=== PATIENT | female | born 1950 | race Caucasian/White ===

== ENCOUNTER 2019-02-06 18:32 | Inpatient (IN) | payer OTHER ==
[~2019-02-06] VITALS: Ht 154.9 cm; Wt 68.2 kg
[2019-02-06] MEDS ORDERED: SOD CHLORIDE 0.9% 1,000 ML IV STA (18:53)
--- NOTE | 2019-02-06 18:59 | ERD ---
ER Documentation Chief Complaint Chief Complaint HPI This is a 68-year-old female with a past medical history of liver cirrhosis on s pironolactone lactulose pantoprazole and folic acid. On 2018 the patient had a spontaneous pneumothorax. She has a heavy tobacco use with COPD. She was taken to [facility] where a chest tube was placed. The patient was discharged to [facility] facility. She had become altered and taken to [facility] in early January. At that time she had a chest tube reinserted and removed 3 times during a 2-week course. She had subsequently been discharged 5 days ago with a Heimlich valve. She had been taken to her [facility] and today accidentally had turned and pulled out her Heimlich valve at 4 PM, 3 hours prior to arrival. The patient was brought to the e mergency department by EMS. She denies any difficulty breathing at this time. There is minimal amount of bleeding over the Heimlich valve site. Nursing staff and placed a pressure dressing which improved her symptoms. ROS All systems reviewed and are negative except as per history of present illness. Allergies Allergies: Coded Allergies: No Known Allergy (Unverified , 02/06/19) Physical Exam Vitals Vital Signs Date Temp Pulse Resp B/P (MAP) Pulse Ox O2 O2 Flow FiO2 Time Delivery Rate 02/06/19 98.4 83 16 138/83 100 Room Air 21:35 (101) 02/06/19 98.4 79 15 142/102 100 Room Air 20:26 (115) 02/06/19 100 100 20:13 02/06/19 98.4 80 19 127/78 97 Room Air 19:46 (94) 02/06/19 Nasal 3 19:03 Cannula 02/06/19 98.4 117 19 159/100 97 19:01 (119) Physical Exam Constitutional:Well-developed. Well-nourished. HEENT:Normocephalic. Atraumatic.Pupils were equal round reactive to light. Moist mucous membranes.No tonsillar exudates. Neck: No nuchal rigidity. No lymphadenopathy. No posterior cervical spine tenderness or step-offs. Respiratory: Not using accessory muscles of respiration.decreased breath sounds throughout the right hemothorax. No rhonchi. No rales. No wheezing. Cardiovascular: Regular rate regular rhythm.No murmurs. No rubs were appreciated .S1, S2 normal. Distal pulses are palpable 2+ bilaterally. Diffuse crepitus over the right chest wall no flail chest. GI: Abdomen was soft. Nontender. Non Distended. No pulsatile abdominal masses or bruits. No rebound. No guarding. Bowel sounds were present and normal. Muscle skeletal: Full range of motion of both the upper and lower extremities bilaterally.Normal muscle tone.No assymetrical calf tenderness or swelling. Skin: No petechia, no purpura. No lesions on the palms or the soles of the feet. No maculopapular rash. NEURO: Patient was alert, awake, orientated x3.No facial droop. Gait not observed as patient was too weak to ambulate .Speech had regular rate and rhythm. No focal neurological deficits. Result Diagram: 02/06/19192802/06/191928 Results 24 hrs Laboratory Tests Test 02/06/19 19:29 02/06/19 21:40 White Blood Count 8.2 10^3/ul Red Blood Count 4.64 10^6/ul Hemoglobin 14.1 g/dl Hematocrit 42.6 % Mean Corpuscular Volume 91.8 fl Mean Corpuscular Hemoglobin 30.4 pg Mean Corpuscular Hemoglobin Concent 33.1 g/dl Red Cell Distribution Width 16.0 % Platelet Count 198 10^3/UL Mean Platelet Volume 10.2 fl Immature Granulocytes % 1.200 % Neutrophils % 65.8 % Lymphocytes % 16.1 % Monocytes % 11.5 % Eosinophils % 4.7 % Basophils % 0.7 % Nucleated Red Blood Cells % 0.0 /100WBC Immature Granulocytes # 0.100 10^3/ul Neutrophils # 5.4 10^3/ul Lymphocytes # 1.3 10^3/ul Monocytes # 1.0 10^3/ul Eosinophils # 0.4 10^3/ul Basophils # 0.1 10^3/ul Nucleated Red Blood Cells # 0.0 10^3/ul Prothrombin Time 17.3 Sec Prothrombin Time Ratio 1.4 INR International Normalized Ratio 1.40 Activated Partial Thromboplast Time 34.5 Sec Sodium Level 136 mmol/L Potassium Level 3.8 mmol/L Chloride Level 100 mmol/L Carbon Dioxide Level 26 mmol/L Anion Gap 10 Blood Urea Nitrogen 8 mg/dl Creatinine 0.76 mg/dl Est Glomerular Filtrat Rate mL/min > 60 mL/min Glucose Level 210 mg/dl Calcium Level 9.2 mg/dl Total Bilirubin 1.6 mg/dl Direct Bilirubin 0.00 mg/dl Indirect Bilirubin 1.6 mg/dl Aspartate Amino Transf (AST/SGOT) 51 IU/L Alanine Aminotransferase (ALT/SGPT) 29 IU/L Alkaline Phosphatase 106 IU/L Creatine Kinase < 20 IU/L Creatine Kinase Index Creatinine Kinase MB (Mass) 0.29 ng/ml Troponin I < 0.012 ng/ml B-Type Natriuretic Peptide 64 PG/ML Total Protein 7.3 g/dl Albumin 3.1 g/dl Globulin 4.20 g/dl Albumin/Globulin Ratio 0.73 Lipase 244 U/L Ammonia 34 umol/l Current Medications Medications Dose Sig/Nicole Start Time Status Last (Trade) Ordered Route PRN Stop Time Admin Dose Reason Admin Sodium 1,000 ml @ Q1H STAT 02/06/19 DC 02/06/19 Chloride 1,000 mls/hr IV 18:53 02/06/19 18:53 19:52 1 mg ONCE STAT 02/06/19 DC 02/06/19 Hydromorphone IV 19:05 02/06/19 19:05 HCl 19:06 (Dilaudid) Propofol 100 mg ONCE STAT 02/06/19 DC (Diprivan) IV 19:05 02/06/19 19:06 Ondansetron 4 mg ONCE STAT 02/06/19 DC 02/06/19 HCl (Zofran IV 19:05 02/06/19 19:05 Inj) 19:06 Propofol 20 ml @ STK-MED 02/06/19 DC ONCE .ROUTE 19:06 02/06/19 19:07 Vancomycin 250 ml @ ONCE ONCE 02/06/19 02/06/19 HCl 125 mls/hr IVPB 20:30 02/06/19 21:56 22:29 Piperacillin 100 ml @ ONCE STAT 02/06/19 DC 02/06/19 Sod/ 200 mls/hr IVPB 20:15 02/06/19 20:15 Tazobactam 20:44 Sod Ondansetron 4 mg ER BRIDGE 02/06/19 HCl (Zofran PRN IV 21:30 02/07/19 Inj) NAUSEA/VOMITI 21:29 NG 650 mg ER BRIDGE 02/06/19 Acetaminophen PRN PO 21:30 02/07/19 (Tylenol .MILD PAIN 21:29 Tab) 1-3 OR TEMP Procedures/MDM This is a 68-year-old female that presented to the emergency department with significant right chest wall crepitus status post accident removal of Heimlich valve. The patient was immediately placed on a supply chain tech continuous pulse oximetry and IV access had been established by nursing staff. The patient was placed on low flow supplemental oxygen however the patient was not hypoxic. 12 Lead EKG tracing ordered and reviewed by myself showed: Normal sinus rhythm of 80 bpm and no arrhythmia. IN interval normal. QRS duration normal. No ST segment elevation No ST segment depression. No changes consistent with acute ischemia. Due to the patient's physical exam findings with diffuse crepitus of her right chest wall I was concerned for a large pneumothorax. The patient however had a CT scan of her chest that showed that the subcutaneous emphysema was present on the anterior chest wall more prominent on the right which was consistent with the physical exam findings. However the pneumothorax was only 5%. CT scan read by the radiologist indicate the followin. Subcutaneous emphysema involving the anterior chest wall, more notably on the right side. This is likely related to the patient's previous indwelling chest tube. 2. There is a small, approximate 5% volume, residual right pneumothorax demonstrated. 3. Mild centrilobular emphysema. No consolidative pulmonary infiltrates. Mild atelectasis in the lower lobes. The patient was given nebulizer treatments in the emergency department. She was also placed on high flow supplemental oxygen with a nonrebreather. The patient at this time did not require a chest tube. She will be monitored closely and admitted to the hospital for observation. She will have a repeat CT scan performed in the morning. I did administer IV antibiotics to prevent secondary bacterial infection after blood cultures were obtained. She was given va ncomycin and Zosyn. She will be admitted under the care of Dr. Fernandes. The patient also has a history of liver cirrhosis. Ammonia level has been ordered. Given that the patient had an ostomy site from the Heimlich valve, the overlying the area of skin was cleaned with Betadine. A three-way dressing was applied as this could be considered an open pneumothorax. Critical Care: Time: 90 minutes Treatments/Evaluations: Close monitoring and treatment of unstable vital signs, cardiorespiratory, and neurologic status, while maintaining tight balance of fluid, respiratory, and cardiac interventions. Time does not include performing any of the above billable procedures. Departure Diagnosis: Primary Impression: Pneumothorax Pneumothorax type: unspecified pneumothorax Qualified Codes: J93.9 - Pneumothorax, unspecified Condition: Serious SANTANA WEBB MD Feb 06, 2019 18:59
[2019-02-06] MEDS ORDERED: HYDROmorphONE 1 MG/ML SYG IV STA (19:05)
[2019-02-06] MEDS ORDERED: PROPOFOL 200 MG INJ IV STA (19:05)
[2019-02-06] MEDS ORDERED: ONDANSETRON 4 MG INJ IV STA (19:05)
[2019-02-06] MEDS ORDERED: PROPOFOL 0 ML ONE (19:06)
[2019-02-06] MEDS ORDERED: PIPER-TAZO 3.375 GM IV (PMX) 100 ML IVPB STA (20:15)
[2019-02-06] MEDS ORDERED: VANCOMYCIN 1 GM (PMX) 250 ML IVPB ONE (20:30)
[2019-02-06] MEDS ORDERED: ONDANSETRON 4 MG INJ IV PRN (21:30)
[2019-02-06] MEDS ORDERED: ACETAMINOPHEN 325 MG TAB PO PRN (21:30)
[2019-02-06 22:25] VITALS: PULSE 80
[2019-02-06 23:01] VITALS: BP 134/73; PULSE 77; RESP 20
[2019-02-07] VITALS (9 sets, daily range): BP systolic 100–154; BP diastolic 50–67; PULSE 57–80; RESP 18–19; Ht 154.9 cm; Wt 68.2 kg
[2019-02-07] MEDS ORDERED: ALBUTEROL HFA 8 GM INHALER INH PRN (01:00)
[2019-02-07] MEDS ORDERED: ONDANSETRON 4 MG TAB PO PRN (01:00)
[2019-02-07] MEDS ORDERED: RIFAXIMIN 550 MG TAB PO ONE (01:00)
[2019-02-07] MEDS ORDERED: traMADol 50 MG TAB PO PRN (01:00)
[2019-02-07] MEDS: DIPHENHYDRAMINE 25 MG CAP PO PRN ×2 (01:56→22:08)
[2019-02-07] MEDS: LACTULOSE 30ML CUP PO SCH ×3 (05:24→17:44)
[2019-02-07] MEDS: PANTOPRAZOLE (EC) 40 MG TAB PO SCH (05:24)
[2019-02-07] MEDS: PIPER-TAZO 3.375 GM IV (PMX) 100 ML IVPB SCH ×2 (05:25→13:01)
[2019-02-07] MEDS ORDERED: FAMOTIDINE 20 MG TAB PO SCH (09:00)
[2019-02-07] MEDS: THIAMINE 100 MG TAB PO SCH (09:17)
[2019-02-07] MEDS: CYANOCOBALAMIN 500 MCG TAB PO SCH (09:17)
[2019-02-07] MEDS: FOLIC ACID 1 MG TAB PO SCH (09:17)
[2019-02-07] MEDS: FERROUS SULFATE (EC) 325 MG TAB PO SCH (09:17)
[2019-02-07] MEDS: SPIRONOLACTONE 50 MG TAB PO SCH (09:17)
[2019-02-07] MEDS: NICOTINE (21 MG/24 HR) PATCH TRANSDERM SCH (09:17)
[2019-02-07] MEDS: MULTIVITAMINS THERAPEUTIC TAB PO SCH (09:18)
[2019-02-07] MEDS: FUROSEMIDE 40 MG TAB PO SCH (09:18)
--- NOTE | 2019-02-07 13:30 | HP ---
Date/Time of Note Date/Time of Note DATE: 02/07/19 TIME: 12:53 Assessment/Plan VTE Prophylaxis Risk score (from Ns)>0 risk: 5 SCD applied (from Ns): Yes Pharmacological prophylaxis: NA/contraindicated Pharm contraindication: blood coag disorder Lines/Catheters IV C[facility]ter Type [facility]from [facility] Saline Lock Urinary Cath still in place: No Assessment/Plan Assessment/Plan 68-year-old female with: 1. Known recurrent right pneumothorax, status post Heimlich valve week ago which unfortunately was accidentally removed or fell off at SNF, CAT scans over the past 24 hours since it fell off is showing a stable small pneumothorax at approximately 5%. However patient is well known to us and has had recurrence of her pneumothorax within 48 hours, will order chest x-ray PA and lateral for the morning and if still having a small pneumothorax and O2 requirement lower, she may be discharged back to longterm facility with unfortunately the high likelihood for readmission because of recurrence of right pneumothorax. She does have bullous emphysema and some rib fractures on the right which would increase her risk for recurrence of the pneumothorax. No need for antibiotics. 2. Alcoholic cirrhosis with known sequelae including portal hypertension, chronic mild coagulopathy and hepatic encephalopathy Mental status is stable, continue lactulose and rifaximin She is also on spironolactone and Lasix. Monitor mental status. 3. COPD/bullous emphysema: we will put the patient on Brio Ellipta along with prn nebulizer treatments. 4. Tobacco use: Agree with nicotine patch. 5. History of EtOH use, on appropriate folic acid/multivitamin/thiamine 6. Chronic anemia, continue iron supplementation. h/h stable Prophylaxis: SCDs for DVT prophylaxis, Protonix for GI prophylaxis Disposition: Patient on telemetry, will order 2 view chest x-ray for a.m. with possible discharge back to longterm facility in the next 24 hours if O2 requirement improved and small pneumothorax stable. Patient is DNR Result Diagram: 02/07/1960602/07/19606 Results 24hrs Laboratory Tests Test 02/06/19 19:29 02/06/19 21:40 02/07/19 06:07 White Blood Count 8.2 9.7 Red Blood Count 4.64 4.42 Hemoglobin 14.1 13.3 Hematocrit 42.6 41.5 Mean Corpuscular Volume 91.8 93.9 Mean Corpuscular Hemoglobin 30.4 30.1 Mean Corpuscular Hemoglobin Concent 33.1 32.0 Red Cell Distribution Width 16.0 H 16.2 H Platelet Count 198 194 Mean Platelet Volume 10.2 10.1 Immature Granulocytes % 1.200 H 1.000 H Neutrophils % 65.8 69.4 Lymphocytes % 16.1 13.8 L Monocytes % 11.5 H 9.9 Eosinophils % 4.7 5.4 Basophils % 0.7 0.5 Nucleated Red Blood Cells % 0.0 0.0 Immature Granulocytes # 0.100 H 0.100 H Neutrophils # 5.4 6.7 Lymphocytes # 1.3 1.3 Monocytes # 1.0 H 1.0 H Eosinophils # 0.4 0.5 Basophils # 0.1 0.1 Nucleated Red Blood Cells # 0.0 0.0 Prothrombin Time 17.3 H 17.1 H Prothrombin Time Ratio 1.4 1.3 INR International Normalized Ratio 1.40 1.38 Activated Partial Thromboplast Time 34.5 Sodium Level 136 142 Potassium Level 3.8 4.1 Chloride Level 100 107 Carbon Dioxide Level 26 25 Anion Gap 10 10 Blood Urea Nitrogen 8 9 Creatinine 0.76 1.00 Est Glomerular Filtrat Rate mL/min > 60 55 L Glucose Level 210 92 # Calcium Level 9.2 8.6 Total Bilirubin 1.6 H 1.3 Direct Bilirubin 0.00 0.00 Indirect Bilirubin 1.6 H 1.3 H Aspartate Amino Transf (AST/SGOT) 51 H 49 H Alanine Aminotransferase (ALT/SGPT) 29 32 Alkaline Phosphatase 106 89 Creatine Kinase < 20 L Creatine Kinase Index Creatinine Kinase MB (Mass) 0.29 Troponin I < 0.012 B-Type Natriuretic Peptide 64 Total Protein 7.3 6.4 Albumin 3.1 L 2.6 L Globulin 4.20 H Albumin/Globulin Ratio 0.73 Lipase 244 Ammonia 34 H Hemoglobin A1c 5.5 Triglycerides Level 71 Cholesterol Level 98 L LDL Cholesterol, Calculated 58 HDL Cholesterol 26 L Cholesterol/HDL Ratio 3.7 HPI/ROS Admit Date/Time Admit Date/Time Feb 06, 2019 at 21:05 Hx of Present Illness Chief complaint: Heimlich valve accidentally removed History of presenting illness: 68 year-old female, well-known to me, was hospitalized at [facility] in November 2018 with right pneumothorax but ended up needing placement of a Heimlich valve, sent to a longterm facility where she developed hepatic encephalopathy due to her known alcoholic cirrhosis and also significant subcutaneous emphysema while having a Heimlich valve that may have been dislodged, she was admitted at [facility] in January 2019 to the intensive care unit, chest tube was placed on admission for her right pneumothorax, the chest tube was eventually removed with a recurrence of the pneumothorax within 24-48 hours, therefore Heimlich valve had to be replaced prior to discharge from [facility] approximately a week ago. Now the patient is readmitted at [facility] from the facility she was sent to after apparently accidental removal of the Heimlich valve, apparently fell off. Patient denies any shortness of breath however upon arrival in the emergency department, CAT scan of the chest was done last night and she was found to have a small pneumothorax 5%. She was placed on nonrebreather until and now on 6 L nasal cannula, repeat CAT scan 12 hours later approximately showing an unchanged pneumothorax. Likely will need repeat imaging tomorrow and if still patient only has a small pneumothorax she may not need replacement of a Heimlich valve. However she is a high risk because she has significant bullous emphysema and a high risk for recurrence of this right pneumothorax as she has done in the past many times and so for her to have a Heimlich valve placed x2 over the past 2 months. Her mental status is at baseline however, she is on her appropriate medications for her hepatic encephalopathy. Of note, while at [facility], she has been considered for possible pleurodesis, patient by the end of her stay was refusing any invasive surgery, also she was considered a high risk due to her recurrence of hepatic ence phalopathy and significant liver disease. After discussion with the family and the patient, she opted for reinsertion of the Heimlich valve and also was a DNR and may have been discharged on hospice while at longterm facility or was supposed to meet up with hospice while at SNF ROS Eyes: no complaints ENT: no complaints Respiratory: no complaints Cardiovascular: no complaints Gastrointestinal: no complaints Genitourinary: no complaints Musculoskeletal: no complaints Skin: other (Still with some subcutaneous emphysema) Neurologic: no complaints Endocrine: no complaints PMH/Family/Social Past Medical History Recurrent right pneumothorax, status post Heimlich valve a week ago, prior to that did require chest tube for a couple of weeks and prior to that had a Heimlich valve. COPD/bullous emphysema Alcoholic cirrhosis Hepatic encephalopathy, chronic Portal hypertension, chronic Chronic mild coagulopathy 2ry to cirrhosis Tobacco use Medications Current Medications Ondansetron HCl (Zofran Inj) 4 mg ER BRIDGE PRN IV NAUSEA/VOMITING; Start 02/06/19 at 21:30; Stop 02/07/19 at 21:29 Acetaminophen (Tylenol Tab) 650 mg ER BRIDGE PRN PO .MILD PAIN 1-3 OR TEMP; Start 02/06/19 at 21:30; Stop 02/07/19 at 21:29 Lactulose (Enulose) 20 gm Q6 PO Last administered on 02/07/19 05:24; Admin Dose 20 GM; Start 02/07/19 at 06:00 Piperacillin Sod/ Tazobactam Sod 100 ml @ 200 mls/hr Q6 IVPB Last administered on 02/07/19 05:25; Admin Dose 200 MLS/HR; Start 02/07/19 at 06:00 Diphenhydramine HCl (Benadryl) 25 mg HS PRN PO INSOMNIA Last administered on 02/07/19 01:56; Admin Dose 25 MG; Start 02/07/19 at 01:00 Pantoprazole (Protonix Tab) 40 mg DAILY@06 PO Last administered on 02/07/19 05 :24; Admin Dose 40 MG; Start 02/07/19 at 06:00 Folic Acid (Folic Acid) 1 mg DAILY PO Last administered on 02/07/19 09:17; Admin Dose 1 MG; Start 02/07/19 at 09:00 Spironolactone (Aldactone) 100 mg DAILY PO Last administered on 02/07/19 09:17; Admin Dose 100 MG; Start 02/07/19 at 09:00 Multivitamins Therapeutic (Theragran) 1 tab DAILY PO Last administered on 02/07/19 09:18; Admin Dose 1 TAB; Start 02/07/19 at 09:00 Furosemide (Lasix) 40 mg DAILY PO Last administered on 02/07/19 09:18; Admin Dose 40 MG; Start 02/07/19 at 09:00 Cyanocobalamin (Vitamin B12) 1,000 mcg DAILY PO Last administered on 02/07/19 09:17; Admin Dose 1,000 MCG; Start 02/07/19 at 09:00 Nicotine (Nicoderm 21 Mg/ 24hr) 1 patch DAILY TRANSDERM Last administered on 02/07/19at 09:17; Admin Dose 1 PATCH; Start 02/07/19 at 09:00 Ferrous Sulfate (Ferrous Sulfate (Ec)) 325 mg DAILY PO Last administered on 02/07/19at 09:17; Admin Dose 325 MG; Start 02/07/19 at 09:00 Thiamine HCl (Vitamin B1) 100 mg DAILY PO Last administered on 02/07/19at 09:17; Admin Dose 100 MG; Start 02/07/19 at 09:00 Famotidine (Pepcid) 20 mg BID PO Last administered on 02/07/19 09:18; Admin Dose 20 MG; Start 02/07/19 at 09:00 Albuterol (Ventolin Hfa) 2 puff Q4H RESP THERAPY PRN INH SHORTNESS OF BREATH; Start 02/07/19 at 01:00 Tramadol HCl (Ultram) 50 mg Q6H PRN PO MODERATE PAIN LEVEL 4-6; Start 02/07/19 at 01:00 Ondansetron HCl (Zofran Tab) 4 mg Q6H PRN PO NAUSEA AND/OR VOMITING; Start 02/07/19 at 01:00 Coded Allergies: No Known Allergy (Unverified , 02/06/19) Past Surgical History Status post Heimlich valve x2 now that subsequently dislodged while at longterm facility Social History Alcohol Use: sober Smoking Status: Former smoker Drug Use: none Exam/Review of Systems Vital Signs Vitals Vital Signs Date Temp Pulse Resp B/P (MAP) Pulse Ox O2 O2 Flow FiO2 Time Delivery Rate 02/07/19 74 12:13 02/07/19 98.3 18 100/50 95 11:19 (67) 02/07/19 6.0 09:56 02/07/19 Non 08:00 Rebreather 02/06/19 100 20:13 Exam Constitutional: alert, oriented, well developed Respiratory: clear to auscultation, normal air movement, other (Some faint scattered wheezes otherwise good air movement.) Cardiovascular: regular rate and rhythm, nl pulses Gastrointestinal: soft, non-tender Musculoskeletal: nl extremities to inspection Extremities: normal pulses, other (No edema, clubbing or cyanosis) Neurological: GAMEPLAY PROGRAMMER II-XII intact, nl mental status, nl speech, nl strength Additional Comments PROCEDURE: CT Chest without contrast. CLINICAL INDICATION: Pneumothorax. TECHNIQUE: Multiple contiguous helical CT images of the chest were obtained without the administration of intravenous contrast. Coronal and sagittal reformatted images were obtained from the source images. DICOM images are available. CTDIvol (mGy): 7.6 mGy; Total Exam DLP (mGy-cm): 264.31 mGy.cm. One or more of the following dose reduction techniques were utilized: - Automated exposure control. - Adjustment of the mA and/or kV according to patient size. - Use of iterative reconstruction technique. COMPARISON: 02/06/2019. FINDINGS: Lower neck: Unremarkable. Cardiovascular: The heart is not enlarged. There is no pericardial effusion. The thoracic aorta is normal in caliber. Thoracic aortic atherosclerotic calcification is observed. Coronary artery calcification is present. The pulmonary arteries are not substantially enlarged. Mediastinum: Unremarkable. Lymph nodes: No mediastinal, hilar or axillary lymphadenopathy. Lungs: A small right pneumothorax is unchanged. Subsegmental atelectasis is seen throughout the right lower lobe. Milder atelectatic changes are seen within the left lower lobe. Diffuse bronchial wall thickening is observed. Paraseptal and centrilobular emphysematous changes are seen bilaterally abdominally within the upper lungs. Small bullae are also present. Upper abdomen: Cirrhotic liver. Splenomegaly. Musculoskeletal: Mild degenerative changes of the thoracic spine are observed. Scattered few nondisplaced right anterior rib fractures are present. Additional comments: Anterior chest wall subcutaneous emphysema, unchanged to slightly decreased. IMPRESSION: Small right pneumothorax, grossly unchanged. Anterior chest wall subcutaneous emphysema, unchanged to slightly decreased. Upper lung predominant bullous emphysema. Bibasilar subsegmental atelectasis, right greater than left. Scattered few nondisplaced right anterior rib fractures. RPTAT: AAQQ .Elena Garcia MD, Date Time Electronically viewed and signed by .Elena Garcia MD, on 02/07/2019 12:33 .T/ CC: SHAMEKA CAMACHO MD, N'DEYE F Feb 07, 2019 13:11
[2019-02-07] MEDS: ALBUTEROL/IPRATROPIUM (NEB) 3 ML AMP HHN SCH (15:27)
[2019-02-07] MEDS: FLUTICASONE/VILANTEROL 200-25 INH DEVICE INH SCH (16:00)
[2019-02-07] MEDS ORDERED: INSU100C SQ (16:08)
[2019-02-07] MEDS ORDERED: NICO-544 TD (16:31)
[2019-02-07] MEDS ORDERED: FURO40TA4 PO (16:31)
[2019-02-07] MEDS ORDERED: THIA50TA7 PO (16:31)
[2019-02-07] MEDS ORDERED: [UNRECOGNIZED DRUG - CODE] PO (16:31)
[2019-02-07] MEDS ORDERED: [UNRECOGNIZED DRUG - CODE] PO (16:31)
[2019-02-07] MEDS ORDERED: LACT10SO5 PO (16:31)
[2019-02-07] MEDS ORDERED: FOLI-49 PO (16:31)
[2019-02-07] MEDS ORDERED: SPIR100T4 PO (16:31)
[2019-02-07] MEDS ORDERED: RIFA500P3 PO (16:31)
[2019-02-07] MEDS ORDERED: PANT40TA3 PO (16:31)
[2019-02-07] MEDS ORDERED: FER325 PO (16:39)
[2019-02-07] MEDS ORDERED: GLUCOSE GEL 15 GRAM TUBE PO PRN ×2 (20:00)
[2019-02-07] MEDS ORDERED: GLUCAGON 1 MG INJ IM PRN (20:00)
[2019-02-07] MEDS ORDERED: DEXTROSE 50% 50 ML SYRINGE IV PRN ×2 (20:00)
[2019-02-07] MEDS ORDERED: GLUCOSE GEL 15 GRAM TUBE BUCCAL PRN (20:00)
[2019-02-07] MEDS: INSULIN ASPART [NOVOLOG] 3 ML PEN SC SCH (20:23)
[2019-02-08] VITALS (10 sets, daily range): BP systolic 101–122; BP diastolic 52–83; PULSE 63–98; RESP 18–19
[2019-02-08] MEDS: ALBUTEROL/IPRATROPIUM (NEB) 3 ML AMP HHN SCH ×4 (01:34→23:41)
[2019-02-08] MEDS: ACCU-CHEK XX SCH (02:00)
[2019-02-08] MEDS: PANTOPRAZOLE (EC) 40 MG TAB PO SCH (05:18)
[2019-02-08] MEDS: LACTULOSE 30ML CUP PO SCH ×5 (05:18→23:31)
[2019-02-08] MEDS: INSULIN ASPART [NOVOLOG] 3 ML PEN SC SCH ×4 (07:55→19:57)
[2019-02-08] MEDS: CYANOCOBALAMIN 500 MCG TAB PO SCH (08:52)
[2019-02-08] MEDS: NICOTINE (21 MG/24 HR) PATCH TRANSDERM SCH (08:52)
[2019-02-08] MEDS: FERROUS SULFATE (EC) 325 MG TAB PO SCH (08:53)
[2019-02-08] MEDS: FOLIC ACID 1 MG TAB PO SCH (08:53)
[2019-02-08] MEDS: MULTIVITAMINS THERAPEUTIC TAB PO SCH (08:53)
[2019-02-08] MEDS: SPIRONOLACTONE 50 MG TAB PO SCH (08:53)
[2019-02-08] MEDS: THIAMINE 100 MG TAB PO SCH (08:53)
[2019-02-08] MEDS: FUROSEMIDE 40 MG TAB PO SCH (08:54)
[2019-02-08] MEDS: FLUTICASONE/VILANTEROL 200-25 INH DEVICE INH SCH (08:54)
--- NOTE | 2019-02-08 12:00 | PN ---
Date/Time of Note Date/Time of Note DATE: 02/08/19 TIME: 11:58 Assessment/Plan VTE Prophylaxis Risk score (from Ns)>0 risk: 5 SCD applied (from Ns): Yes Pharmacological prophylaxis: LMWH Lines/Catheters IV Catheter Type (from Nrsg): Saline Lock Urinary Cath still in place: No Assessment/Plan Assessment/Plan 1. pulm: dispokaced hieimlih valve, however no evidence of recurrent ptx or worsening sob at this time; case d/w dr montanez, consider tube thoracostomy pleurodesis vs expectant managment, choices proposed to dtr, await decision (b) copd (c) hypoemic resp failure, likely to require home O2 2. alcoholic cirrhosis 3. anticipate return to snf in am, unless family wishes to proceed with pleurodesis Result Diagram: 02/07/19 0607 02/08/19 0645 Results 24hrs Laboratory Tests Test 02/07/19 20:23 02/08/19 06:45 02/08/19 06:46 02/08/19 07:56 Bedside Glucose 176 136 Sodium Level 140 Potassium Level 3.8 Chloride Level 103 Carbon Dioxide Level 29 Anion Gap 8 Blood Urea Nitrogen 11 Creatinine 0.66 Est Glomerular Filtrat > 60 Rate mL/min Glucose Level 132 # Calcium Level 8.5 Total Bilirubin 1.4 H Direct Bilirubin 0.00 Indirect Bilirubin 1.4 H Aspartate Amino 43 Transf (AST/SGOT) Alanine 28 Aminotransferase (ALT/SG PT) Alkaline Phosphatase 93 Total Protein 6.3 Albumin 2.6 L Globulin 3.70 H Albumin/Globulin Ratio 0.70 Phosphorus Level 3.2 Magnesium Level 1.4 L Test 02/08/19 11:43 Bedside Glucose 136 Subjective 24 Hr Interval Summary Free Text/Dictation no complaints, wants to go, no sob, no oob Exam/Review of Systems Exam Vitals Vital Signs Date Temp Pulse Resp B/P (MAP) Pulse Ox O2 O2 Flow FiO2 Time Delivery Rate 02/08/19 98.6 92 18 101/52 95 Nasal 11:15 (68) Cannula 02/08/19 3.0 08:21 02/07/19 36 15:28 Intake and Output 02/07/19 02/07/19 02/08/19 1515:00 23:00 07:00 IntakeIntake Total 700 ml 750 ml BalanceBalance 700 ml 750 ml Exam nad, ctab, rrr, soft nt., no edema Results Results 24hrs Laboratory Tests Test 02/07/19 20:23 02/08/19 06:45 02/08/19 06:46 02/08/19 07:56 Bedside Glucose 176 136 Sodium Level 140 Potassium Level 3.8 Chloride Level 103 Carbon Dioxide Level 29 Anion Gap 8 Blood Urea Nitrogen 11 Creatinine 0.66 Est Glomerular Filtrat > 60 Rate mL/min Glucose Level 132 # Calcium Level 8.5 Total Bilirubin 1.4 H Direct Bilirubin 0.00 Indirect Bilirubin 1.4 H Aspartate Amino 43 Transf (AST/SGOT) Alanine 28 Aminotransferase (ALT/SG PT) Alkaline Phosphatase 93 Total Protein 6.3 Albumin 2.6 L Globulin 3.70 H Albumin/Globulin Ratio 0.70 Phosphorus Level 3.2 Magnesium Level 1.4 L Test 02/08/19 11:43 Bedside Glucose 136 Medications Medication Current Medications Lactulose (Enulose) 20 gm Q6 PO Last administered on 02/08/19 05:18; Admin Dose 20 GM; Start 02/07/19 at 06:00 Diphenhydramine HCl (Benadryl) 25 mg HS PRN PO INSOMNIA Last administered on 02/07/19 22:08; Admin Dose 25 MG; Start 02/07/19 at 01:00 Pantoprazole (Protonix Tab) 40 mg DAILY@06 PO Last administered on 02/08/19 05:18; Admin Dose 40 MG; Start 02/07/19 at 06:00 Folic Acid (Folic Acid) 1 mg DAILY PO Last administered on 02/08/19 08:53; Admin Dose 1 MG; Start 02/07/19 at 09:00 Spironolactone (Aldactone) 100 mg DAILY PO Last administered on 02/08/19 08:53; Admin Dose 100 MG; Start 02/07/19 at 09:00 Multivitamins Therapeutic (Theragran) 1 tab DAILY PO Last administered on 02/08/19 08:53; Admin Dose 1 TAB; Start 02/07/19 at 09:00 Furosemide (Lasix) 40 mg DAILY PO Last administered on 02/08/19 08:54; Admin Dose 40 MG; Start 02/07/19 at 09:00 Cyanocobalamin (Vitamin B12) 1,000 mcg DAILY PO Last administered on 02/08/19 08:52; Admin Dose 1,000 MCG; Start 02/07/19 at 09:00 Nicotine (Nicoderm 21 Mg/ 24hr) 1 patch DAILY TRANSDERM Last administered on 02/08/19 08:52; Admin Dose 1 PATCH; Start 02/07/19 at 09:00 Ferrous Sulfate (Ferrous Sulfate (Ec)) 325 mg DAILY PO Last administered on 02/08/19 08:53; Admin Dose 325 MG; Start 02/07/19 at 09:00 Thiamine HCl (Vitamin B1) 100 mg DAILY PO Last administered on 02/08/19 08:53; Admin Dose 100 MG; Start 02/07/19 at 09:00 Albuterol (Ventolin Hfa) 2 puff Q4H RESP THERAPY PRN INH SHORTNESS OF BREATH; Start 02/07/19 at 01:00 Tramadol HCl (Ultram) 50 mg Q6H PRN PO MODERATE PAIN LEVEL 4-6; Start 02/07/19 at 01:00 Ondansetron HCl (Zofran Tab) 4 mg Q6H PRN PO NAUSEA AND/OR VOMITING; Start 02/07/19 at 01:00 Fluticasone/ Vilanterol (Breo Ellipta 200-25 Mcg Inh) 1 inh DAILY INH Last administered on 02/08/19 08:54; Admin Dose 1 INH; Start 02/07/19 at 15:00 Albuterol/ Ipratropium (Duoneb) 3 ml Q8H RESP THERAPY HHN Last administered on 02/08/19 08:16; Admin Dose 3 ML; Start 02/07/19 at 16:00 Diagnostic Test (Pha) (Accu-Chek) 1 ea 02 XX ; Start 02/08/19 at 02:00 Insulin Aspart (Novolog Insulin Pen) NOVOLOG *MILD* ALGORITHM WITH MEALS BEDT LIZZ SC ; Start 02/07/19 at 21:00 Miscellaneous Information 1 ea NOTE XX ; Start 02/07/19 at 20:00 Glucose (Glutose) 15 gm Q15M PRN PO DECREASED GLUCOSE; Start 02/07/19 at 20:00 Glucose (Glutose) 22.5 gm Q15M PRN PO DECREASED GLUCOSE; Start 02/07/19 at 20:00 Dextrose (D50w Syringe) 25 ml Q15M PRN IV DECREASED GLUCOSE; Start 02/07/19 at 20:00 Dextrose (D50w Syringe) 50 ml Q15M PRN IV DECREASED GLUCOSE; Start 02/07/19 at 20:00 Glucagon (Glucagen) 1 mg Q15M PRN IM DECREASED GLUCOSE; Start 02/07/19 at 20:00 Glucose (Glutose) 15 gm Q15M PRN BUCCAL DECREASED GLUCOSE; Start 02/07/19 at 20:00 LEO ADAMS MD Feb 08, 2019 12:00
--- NOTE | 2019-02-08 15:59 | CONS ---
Assessment/Plan Assessment/Plan Assessment/Plan (Daily) IMP: 1. Recurrent Secondary Spontaneous Pneumothorax--in a patient with paraseptal emphysema s/p repeat indwelling chest tubes likely due to persistent air leaks. Now s/p accidental dislodgement of most recent tube with evidence of a persistent small sized, partially loculated right pneumothorax. RECS: 1. I had a long discussion with her regarding therapeutic options, including VATS repair followed by pleurodesis vs. repeat chest tube insertion followed by blood patch instillation and closed pleurodesis vs. no intervention. She recognizes the risk of worsening size of pneumothorax with expansion resulting in respiratory deterioration and even . With that said, she does not want to endure any further interventions and would like to go home with home health and PT. Consultation Date/Type/Reason Admit Date/Time Feb 06, 2019 at 21:05 Date of Consultation: Feb 08, 2019 Type of Consult Pulm/CCM Date/Time of Note DATE: 02/08/19 TIME: 15:45 Hx of Present Illness Briefly, this is a 68-year-old female with advanced emphysema, ETOH cirrhosis complicated by hepatic encephalopathy, who has had a recurrent right-sided secondary spontaneous pneumothorax (SSP) dating back to November 2018, s/p prior chest tubes and transition to Heimlich valves. Most recently, she was khalil sferred from her care home after her right-sided chest tube--connected to Heimlich--became dislodged. She has since refused further pleural interventions and has had two thoracic CTs showing stability of a small-sized partially loculated with pneumothorax. Constitutional: no complaints, improved Eyes: no complaints ENT: no complaints Respiratory: pleuritic pain, sputum Cardiovascular: no complaints Gastrointestinal: no complaints Genitourinary: no complaints Musculoskeletal: no complaints Skin: no complaints Neurologic: no complaints Past Medical History as per [facility] Home Meds Reported Medications Ferrous Sulfate* (Ferrous Sulfate*) 325 Mg Tabec, 325 MG PO DAILY, TAB 02/07/19 Spironolactone* (Spironolactone*) 100 Mg Tablet, 100 MG PO DAILY, TAB 02/07/19 Famotidine (Famotidine) 20 Mg/2 Ml Syringe, 20 MG PO BID 02/07/19 Thiamine* (Thiamine*) 50 Mg Tablet, 100 MG PO DAILY, TAB 02/07/19 Furosemide* (Furosemide*) 40 Mg Tablet, 40 MG PO DAILY, TAB 02/07/19 Nicotine* (Nicotine* Patch) 7 mg/day Patch, 1 PATCH TD DAILY MDD 21mg/ day, PATCH 02/07/19 Cyanocobalamin (Cyanocobalamin) 25 Gm Powder, 1000 MCG PO DAILY 02/07/19 Folic Acid* (Folic Acid*) 1 Mg Tablet, 1 MG PO DAILY, TAB 02/07/19 Pantoprazole* (Protonix*) 40 Mg Tablet.dr, 40 MG PO DAILY, TAB 02/07/19 Lactulose* (Lactulose*) 10 Gm/15 Ml Solution, 10 GM PO Q12, #30 ML 02/07/19 Rifaximin (Rifaximin) 500 Gm Powder, 550 MG PO DAILY 02/07/19 Spironolactone* (Spironolactone*) 100 Mg Tablet, 100 MG PO DAILY, TAB 02/07/19 Insulin Lispro (Humalog) 100 Unit/1 Ml Cartridge, 100 UNIT SQ AC MEALS AND BEDTIME for with sliding scale, EA 02/07/19 Medications Current Medications Lactulose (Enulose) 20 gm Q6 PO Last administered on 02/08/19at 12:22; Admin Dose 20 GM; Start 02/07/19 at 06:00 Diphenhydramine HCl (Benadryl) 25 mg HS PRN PO INSOMNIA Last administered on 02/07/19 22:08; Admin Dose 25 MG; Start 02/07/19 at 01:00 Pantoprazole (Protonix Tab) 40 mg DAILY@06 PO Last administered on 02/08/19 05:18; Admin Dose 40 MG; Start 02/07/19 at 06:00 Folic Acid (Folic Acid) 1 mg DAILY PO Last administered on 02/08/19 08:53; Admin Dose 1 MG; Start 02/07/19 at 09:00 Spironolactone (Aldactone) 100 mg DAILY PO Last administered on 02/08/19 08:53; Admin Dose 100 MG; Start 02/07/19 at 09:00 Multivitamins Therapeutic (Theragran) 1 tab DAILY PO Last administered on 02/08/19 08:53; Admin Dose 1 TAB; Start 02/07/19 at 09:00 Furosemide (Lasix) 40 mg DAILY PO Last administered on 4/6/19at 08:54; Admin Dose 40 MG; Start 02/07/19 at 09:00 Cyanocobalamin (Vitamin B12) 1,000 mcg DAILY PO Last administered on 02/08/19 08:52; Admin Dose 1,000 MCG; Start 02/07/19 at 09:00 Nicotine (Nicoderm 21 Mg/ 24hr) 1 patch DAILY TRANSDERM Last administered on 02/08/19at 08:52; Admin Dose 1 PATCH; Start 02/07/19 at 09:00 Ferrous Sulfate (Ferrous Sulfate (Ec)) 325 mg DAILY PO Last administered on 02/08/19at 08:53; Admin Dose 325 MG; Start 02/07/19 at 09:00 Thiamine HCl (Vitamin B1) 100 mg DAILY PO Last administered on 02/08/19 08:53; Admin Dose 100 MG; Start 02/07/19 at 09:00 Albuterol (Ventolin Hfa) 2 puff Q4H RESP THERAPY PRN INH SHORTNESS OF BREATH; Start 02/07/19 at 01:00 Tramadol HCl (Ultram) 50 mg Q6H PRN PO MODERATE PAIN LEVEL 4-6; Start 02/07/19 at 01:00 Ondansetron HCl (Zofran Tab) 4 mg Q6H PRN PO NAUSEA AND/OR VOMITING; Start 02/07/19 at 01:00 Fluticasone/ Vilanterol (Breo Ellipta 200-25 Mcg Inh) 1 inh DAILY INH Last administered on 02/08/19 08:54; Admin Dose 1 INH; Start 02/07/19 at 15:00 Albuterol/ Ipratropium (Duoneb) 3 ml Q8H RESP THERAPY HHN Last administered on 02/08/19at 08:16; Admin Dose 3 ML; Start 02/07/19 at 16:00 Diagnostic Test (Pha) (Accu-Chek) 1 ea 02 XX ; Start 02/08/19 at 02:00 Insulin Aspart (Novolog Insulin Pen) NOVOLOG *MILD* ALGORITHM WITH MEALS BEDTIME SC ; Start 02/07/19 at 21:00 Miscellaneous Information 1 ea NOTE XX ; Start 02/07/19 at 20:00 Glucose (Glutose) 15 gm Q15M PRN PO DECREASED GLUCOSE; Start 02/07/19 at 20:00 Glucose (Glutose) 22.5 gm Q15M PRN PO DECREASED GLUCOSE; Start 02/07/19 at 20:00 Dextrose (D50w Syringe) 25 ml Q15M PRN IV DECREASED GLUCOSE; Start 02/07/19 at 20:00 Dextrose (D50w Syringe) 50 ml Q15M PRN IV DECREASED GLUCOSE; Start 02/07/19 at 2 0:00 Glucagon (Glucagen) 1 mg Q15M PRN IM DECREASED GLUCOSE; Start 02/07/19 at 20:00 Glucose (Glutose) 15 gm Q15M PRN BUCCAL DECREASED GLUCOSE; Start 02/07/19 at 20:00 Enoxaparin Sodium (Lovenox) 40 mg DAILY SC ; Start 02/09/19 at 09:00 Allergies: Coded Allergies: No Known Allergy (Unverified , 02/06/19) Past Surgical History as per [facility] Family History Significant Family History: no pertinent family hx Social History Alcohol Use: sober Smoking Status: Former smoker Drug Use: none Exam/Review of Systems Exam Vitals Vital Signs Date Temp Pulse Resp B/P (MAP) Pulse Ox O2 O2 Flow FiO2 Time Delivery Rate 02/08/19 98.3 98 18 119/83 95 Nasal 15:20 (95) Cannula 02/08/19 3.0 08:21 02/07/19 36 15:28 Intake and Output 02/07/19 02/07/19 02/08/19 1414:59 22:59 06:59 IntakeIntake Total 700 ml 750 ml BalanceBalance 700 ml 750 ml Constitutional: alert, oriented, well developed Head: normocephalic, atraumatic Eyes: nl conjunctiva, EOMI, nl lids ENMT: nl external ears & nose, nl lips & teeth, nl nasal mucosa & septum, mucosa pink and moist Neck: supple, non-tender Respiratory: diminished breath sounds, other (chest wall crepitus ) Cardiovascular: regular rate and rhythm, nl pulses Gastrointestinal: soft, nl liver, spleen, non-tender Musculoskeletal: nl extremities to inspection, nl gait and stance, other (chest wall with crepitus ) Extremities: normal pulses Results Result Diagram: 02/07/19 0607 02/08/19 0645 Results 24hrs Laboratory Tests Test 02/07/19 20:23 02/08/19 06:45 02/08/19 06:46 02/08/19 07:56 Bedside Glucose 176 136 Sodium Level 140 Potassium Level 3.8 Chloride Level 103 Carbon Dioxide Level 29 Anion Gap 8 Blood Urea Nitrogen 11 Creatinine 0.66 Est Glomerular Filtrat > 60 Rate mL/min Glucose Level 132 # Calcium Level 8.5 Total Bilirubin 1.4 H Direct Bilirubin 0.00 Indirect Bilirubin 1.4 H Aspartate Amino 43 Transf (AST/SGOT) Alanine 28 Aminotransferase (ALT/SG PT) Alkaline Phosphatase 93 Total Protein 6.3 Albumin 2.6 L Globulin 3.70 H Albumin/Globulin Ratio 0.70 Phosphorus Level 3.2 Magnesium Level 1.4 L Test 02/08/19 11:43 Bedside Glucose 136 Medications Medication Current Medications Lactulose (Enulose) 20 gm Q6 PO Last administered on 02/08/19 12:22; Admin Dose 20 GM; Start 02/07/19 at 06:00 Diphenhydramine HCl (Benadryl) 25 mg HS PRN PO INSOMNIA Last administered on 02/07/19 22:08; Admin Dose 25 MG; Start 02/07/19 at 01:00 Pantoprazole (Protonix Tab) 40 mg DAILY@06 PO Last administered on 02/08/19 05:18; Admin Dose 40 MG; Start 02/07/19 at 06:00 Folic Acid (Folic Acid) 1 mg DAILY PO Last administered on 02/08/19 08:53; Admin Dose 1 MG; Start 02/07/19 at 09:00 Spironolactone (Aldactone) 100 mg DAILY PO Last administered on 02/08/19 08:53; Admin Dose 100 MG; Start 02/07/19 at 09:00 Multivitamins Therapeutic (Theragran) 1 tab DAILY PO Last administered on 02/08/19 08:53; Admin Dose 1 TAB; Start 02/07/19 at 09:00 Furosemide (Lasix) 40 mg DAILY PO Last administered on 02/08/19 08:54; Admin Dose 40 MG; Start 02/07/19 at 09:00 Cyanocobalamin (Vitamin B12) 1,000 mcg DAILY PO Last administered on 02/08/19 08:52; Admin Dose 1,000 MCG; Start 02/07/19 at 09:00 Nicotine (Nicoderm 21 Mg/ 24hr) 1 patch DAILY TRANSDERM Last administered on 02/08/19 08:52; Admin Dose 1 PATCH; Start 02/07/19 at 09:00 Ferrous Sulfate (Ferrous Sulfate (Ec)) 325 mg DAILY PO Last administered on at 08:53; Admin Dose 325 MG; Start 02/07/19 at 09:00 Thiamine HCl (Vitamin B1) 100 mg DAILY PO Last administered on 02/08/19at 08:53; Admin Dose 100 MG; Start 02/07/19 at 09:00 Albuterol (Ventolin Hfa) 2 puff Q4H RESP THERAPY PRN INH SHORTNESS OF BREATH; Start 02/07/19 at 01:00 Tramadol HCl (Ultram) 50 mg Q6H PRN PO MODERATE PAIN LEVEL 4-6; Start 02/07/19 at 01:00 Ondansetron HCl (Zofran Tab) 4 mg Q6H PRN PO NAUSEA AND/OR VOMITING; Start 02/07/19 at 01:00 Fluticasone/ Vilanterol (Breo Ellipta 200-25 Mcg Inh) 1 inh DAILY INH Last administered on 02/08/19at 08:54; Admin Dose 1 INH; Start 02/07/19 at 15:00 Albuterol/ Ipratropium (Duoneb) 3 ml Q8H RESP THERAPY HHN Last administered on 02/08/19at 08:16; Admin Dose 3 ML; Start 02/07/19 at 16:00 Diagnostic Test (Pha) (Accu-Chek) 1 ea 02 XX ; Start 02/08/19 at 02:00 Insulin Aspart (Novolog Insulin Pen) NOVOLOG *MILD* ALGORITHM WITH MEALS BEDTIME SC ; Start 02/07/19 at 21:00 Miscellaneous Information 1 ea NOTE XX ; Start 02/07/19 at 20:00 Glucose (Glutose) 15 gm Q15M PRN PO DECREASED GLUCOSE; Start 02/07/19 at 20:00 Glucose (Glutose) 22.5 gm Q15M PRN PO DECREASED GLUCOSE; Start 02/07/19 at 20:00 Dextrose (D50w Syringe) 25 ml Q15M PRN IV DECREASED GLUCOSE; Start 02/07/19 at 20:00 Dextrose (D50w Syringe) 50 ml Q15M PRN IV DECREASED GLUCOSE; Start 02/07/19 at 20:00 Glucagon (Glucagen) 1 mg Q15M PRN IM DECREASED GLUCOSE; Start 02/07/19 at 20:00 Glucose (Glutose) 15 gm Q15M PRN BUCCAL DECREASED GLUCOSE; Start 02/07/19 at 20:00 Enoxaparin Sodium (Lovenox) 40 mg DAILY SC ; Start 02/09/19 at 09:00 RAGHU NERI MD Feb 08, 2019 15:59
[2019-02-08] MEDS: DIPHENHYDRAMINE 25 MG CAP PO PRN (21:16)
[2019-02-09] VITALS (9 sets, daily range): BP systolic 98–138; BP diastolic 56–74; PULSE 70–105; RESP 18
[2019-02-09] MEDS: ACCU-CHEK XX SCH (01:30)
[2019-02-09] MEDS: PANTOPRAZOLE (EC) 40 MG TAB PO SCH (05:26)
[2019-02-09] MEDS: LACTULOSE 30ML CUP PO SCH ×3 (05:26→17:59)
[2019-02-09] MEDS: INSULIN ASPART [NOVOLOG] 3 ML PEN SC SCH ×3 (08:11→17:19)
[2019-02-09] MEDS: FLUTICASONE/VILANTEROL 200-25 INH DEVICE INH SCH (08:39)
[2019-02-09] MEDS: CYANOCOBALAMIN 500 MCG TAB PO SCH (08:40)
[2019-02-09] MEDS: FERROUS SULFATE (EC) 325 MG TAB PO SCH (08:40)
[2019-02-09] MEDS: SPIRONOLACTONE 50 MG TAB PO SCH (08:40)
[2019-02-09] MEDS: THIAMINE 100 MG TAB PO SCH (08:41)
[2019-02-09] MEDS: FOLIC ACID 1 MG TAB PO SCH (08:41)
[2019-02-09] MEDS: MULTIVITAMINS THERAPEUTIC TAB PO SCH (08:41)
[2019-02-09] MEDS: FUROSEMIDE 40 MG TAB PO SCH (08:41)
[2019-02-09] MEDS: NICOTINE (21 MG/24 HR) PATCH TRANSDERM SCH (08:41)
[2019-02-09] MEDS: ALBUTEROL/IPRATROPIUM (NEB) 3 ML AMP HHN SCH ×2 (08:55→15:50)
[2019-02-09] MEDS ORDERED: ENOXAPARIN 40 MG/0.4 ML SYG SC SCH (09:00)
--- NOTE | 2019-02-09 10:52 | PN ---
Date/Time of Note Date/Time of Note DATE: 02/09/19 TIME: 10:50 Assessment/Plan VTE Prophylaxis Risk score (from Nsg)>0 risk: 4 SCD applied (from Nsg): Yes Pharmacological prophylaxis: other Lines/Catheters IV Catheter Type (from Nrsg): Saline Lock Urinary Cath still in place: No Assessment/Plan Assessment/Plan 1. pulm: recurrent spont ptx, improved on most recent cxr, cont current, no procedure as per patient wishes' (b) hypoxemic resp failure, arrange home O2 2. alcoholic liver cirrhosis \ Result Diagram: 02/07/19 0607 02/08/19 0645 Results 24hrs Laboratory Tests Test 02/08/19 11:43 02/08/19 17:10 02/08/19 19:57 02/09/19 08:04 Bedside Glucose 136 169 158 153 Subjective 24 Hr Interval Summary Free Text/Dictation no complaints, discusssed options with pulm, has elected not to have any procedure at this tikme Exam/Review of Systems Exam Vitals Vital Signs Date Temp Pulse Resp B/P (MAP) Pulse Ox O2 O2 Flow FiO2 Time Delivery Rate 02/09/19 73 18 95 Nasal 3.0 09:05 Cannula 02/09/19 98.3 106/58 07:20 (74) 02/07/19 36 15:28 Intake and Output 02/08/19 02/08/19 02/09/19 1515:00 23:00 07:00 IntakeIntake Total 1300 ml 1020 ml BalanceBalance 1300 ml 1020 ml Exam nad soft nt, ctab Results Results 24hrs Laboratory Tests Test 02/08/19 11:43 02/08/19 17:10 02/08/19 19:57 02/09/19 08:04 Bedside Glucose 136 169 158 153 Medications Medication Current Medications Lactulose (Enulose) 20 gm Q6 PO Last administered on 02/09/19at 05:26; Admin Dose 20 GM; Start 02/07/19 at 06:00 Diphenhydramine HCl (Benadryl) 25 mg HS PRN PO INSOMNIA Last administered on 02/08/19at 21:16; Admin Dose 25 MG; Start 02/07/19 at 01:00 Pantoprazole (Protonix Tab) 40 mg DAILY@06 PO Last administered on 02/09/19at 05:26; Admin Dose 40 MG; Start 02/07/19 at 06:00 Folic Acid (Folic Acid) 1 mg DAILY PO Last administered on 02/09/19 08:41; Admin Dose 1 MG; Start 02/07/19 at 09:00 Spironolactone (Aldactone) 100 mg DAILY PO Last administered on 02/09/19 08:40; Admin Dose 100 MG; Start 02/07/19 at 09:00 Multivitamins Therapeutic (Theragran) 1 tab DAILY PO Last administered on 02/09/19 08:41; Admin Dose 1 TAB; Start 02/07/19 at 09:00 Furosemide (Lasix) 40 mg DAILY PO Last administered on 02/09/19 08:41; Admin Dose 40 MG; Start 02/07/19 at 09:00 Cyanocobalamin (Vitamin B12) 1,000 mcg DAILY PO Last administered on 02/09/19 08:40; Admin Dose 1,000 MCG; Start 02/07/19 at 09:00 Nicotine (Nicoderm 21 Mg/ 24hr) 1 patch DAILY TRANSDERM Last administered on 02/09/19 08:41; Admin Dose 1 PATCH; Start 02/07/19 at 09:00 Ferrous Sulfate (Ferrous Sulfate (Ec)) 325 mg DAILY PO Last administered on 02/09/19 08:40; Admin Dose 325 MG; Start 02/07/19 at 09:00 Thiamine HCl (Vitamin B1) 100 mg DAILY PO Last administered on 02/09/19 08:41; Admin Dose 100 MG; Start 02/07/19 at 09:00 Albuterol (Ventolin Hfa) 2 puff Q4H RESP THERAPY PRN INH SHORTNESS OF BREATH; Start 02/07/19 at 01:00 Tramadol HCl (Ultram) 50 mg Q6H PRN PO MODERATE PAIN LEVEL 4-6; Start 02/07/19 at 01:00 Ondansetron HCl (Zofran Tab) 4 mg Q6H PRN PO NAUSEA AND/OR VOMITING; Start 02/07/19 at 01:00 Fluticasone/ Vilanterol (Breo Ellipta 200-25 Mcg Inh) 1 inh DAILY INH Last administered on 02/09/19 08:39; Admin Dose 1 INH; Start 02/07/19 at 15:00 Albuterol/ Ipratropium (Duoneb) 3 ml Q8H RESP THERAPY HHN Last administered on 02/09/19at 08:55; Admin Dose 3 ML; Start 02/07/19 at 16:00 Diagnostic Test (Pha) (Accu-Chek) 1 ea 02 XX ; Start 02/08/19 at 02:00 Insulin Aspart (Novolog Insulin Pen) NOVOLOG *MILD* ALGORITHM WITH MEALS BEDTIME SC Last administered on 02/09/19at 08:11; Admin Dose 1 UNIT; Start 02/07 at 21:00 Miscellaneous Information 1 ea NOTE XX ; Start 02/07/19 at 20:00 Glucose (Glutose) 15 gm Q15M PRN PO DECREASED GLUCOSE; Start 02/07/19 at 20:00 Glucose (Glutose) 22.5 gm Q15M PRN PO DECREASED GLUCOSE; Start 02/07/19 at 20:00 Dextrose (D50w Syringe) 25 ml Q15M PRN IV DECREASED GLUCOSE; Start 02/07/19 at 20:00 Dextrose (D50w Syringe) 50 ml Q15M PRN IV DECREASED GLUCOSE; Start 02/07/19 at 20:00 Glucagon (Glucagen) 1 mg Q15M PRN IM DECREASED GLUCOSE; Start 02/07/19 at 20:00 Glucose (Glutose) 15 gm Q15M PRN BUCCAL DECREASED GLUCOSE; Start 02/07/19 at 20:00 Enoxaparin Sodium (Lovenox) 40 mg DAILY SC Last administered on 02/09/19at 08:45; Admin Dose 40 MG; Start 02/09/19 at 09:00 LEO ADMAS MD Feb 09, 2019 10:52
[2019-02-09] MEDS ORDERED: FLUT1BLS INH (10:58)
[2019-02-09] MEDS ORDERED: LACT20SO2 PO (10:58)
[2019-02-09] MEDS ORDERED: TIOT18CA INHALATION (10:58)
[2019-02-09] MEDS ORDERED: ALBU8.5H8 INH (10:58)
--- NOTE | 2019-02-09 11:04 | DS ---
Date/Time of Note Date/Time of Note DATE: 02/09/19 TIME: 10:59 Discharge Summary Admission/Discharge Info Admit Date/Time Feb 08, 2019 at 13:52 Discharge Date/Time 02/09/2019 Discharge Diagnosis 1. dislodged Heimlich valve 2. recurrent, spontaneous pneumothorax, stable 3. alcoholic cirrhosis Patient Condition: Fair Consults radha montanez MD pul Hospital Course patient admitted with pneumothorax and subcutaneous empysema after haer heimlich valve dislodged. She has been hospitalized several times at [facility] and [facility] with intervening SNF stays for this pneumothorax problem. This has spontaneously recurred on several occasions and has been treated with heimlich valve. Here in hospital she is observed after her valve dislodged and the size of her pneumothorax decreased. She is offered possible blood patch or pleurodes is or vats as definitive treatment of this but she has declined these. she is advised that this may reoccur, inb spite of the improvement noted to date. She accepts this risk. here in hospital she is noted to be hypoxemic related to pneumothorax and COPD, she will be discharged home with nhome O2. Home Meds Active Scripts Albuterol Sulfate* (Proair HFA*) 8.5 Gm Hfa.aer.ad, 2 PUFF INH Q4, #1 INHALER Prov:LEO ADAMS MD 02/09/19 Tiotropium [place]* (Spiriva*) 18 Mcg Cap.w.dev, 1 CAP INHALATION DAILY, #30 CAP Prov:LEO ADAMS MD 02/09/19 Fluticasone/Vilanterol (Breo Ellipta 200-25 Mcg INH) 1 Each Blst.w.dev, 1 INH INH BID for 30 Days, #1 INHALER Prov:LEO ADAMS MD 02/09/19 Lactulose* (Lactulose*) 20 Gm/30 Ml Solution, 20 GM PO Q6 for 30 Days, #3600 ML Prov:LEO ADAMS MD 02/09/19 Reported Medications Ferrous Sulfate* (Ferrous Sulfate*) 325 Mg Tabec, 325 MG PO DAILY, TAB 02/07/19 Spironolactone* (Spironolactone*) 100 Mg Tablet, 100 MG PO DAILY, TAB 02/07/19 Famotidine (Famotidine) 20 Mg/2 Ml Syringe, 20 MG PO BID 02/07/19 Thiamine* (Thiamine*) 50 Mg Tablet, 100 MG PO DAILY, TAB 02/07/19 Furosemide* (Furosemide*) 40 Mg Tablet, 40 MG PO DAILY, TAB 02/07/19 Nicotine* (Nicotine* Patch) 7 mg/day Patch, 1 PATCH TD DAILY MDD 21mg/ day, PATCH 02/07/19 Cyanocobalamin (Cyanocobalamin) 25 Gm Powder, 1000 MCG PO DAILY 02/07/19 Folic Acid* (Folic Acid*) 1 Mg Tablet, 1 MG PO DAILY, TAB 02/07/19 Pantoprazole* (Protonix*) 40 Mg Tablet.dr, 40 MG PO DAILY, TAB 02/07/19 Lactulose* (Lactulose*) 10 Gm/15 Ml Solution, 10 GM PO Q12, #30 ML 02/07/19 Rifaximin (Rifaximin) 500 Gm Powder, 550 MG PO DAILY 02/07/19 Spironolactone* (Spironolactone*) 100 Mg Tablet, 100 MG PO DAILY, TAB 02/07/19 Insulin Lispro (Humalog) 100 Unit/1 Ml Cartridge, 100 UNIT SQ AC MEALS AND BEDTIME for with sliding scale, EA 02/07/19 Follow-up Plan 1. pcp 1 week 2. home health RN 3. home health PT Primary Care Provider Reese Swenson MD Time spent on discharge: > 30 minutes Pending Labs Laboratory Tests Test 02/08/19 11:43 02/08/19 17:10 02/08/19 19:57 02/09/19 08:04 Bedside 136 169 158 153 Glucose mg/dL (70-220) mg/dL (70-220) mg/dL (70-220) mg/dL (70-220) LEO ADAMS MD Feb 09, 2019 11:04
--- NOTE | 2019-02-09 12:29 | CONS ---
Consult Date/Type/Reason Admit Date/Time Feb 08, 2019 at 13:52 Initial Consult Date 02/08/19 Type of Consultation: Pulm Date/Time of Note DATE: 02/09/19 TIME: 12:26 Subjective No events. No significant dyspnea at rest. CXR shows no significant change in size of right loculated PTX Objective Vitals Vital Signs Date Temp Pulse Resp B/P (MAP) Pulse Ox O2 O2 Flow FiO2 Time Delivery Rate 02/09/19 98.5 102 18 113/67 93 Nasal 11:20 (82) Cannula 02/09/19 3.0 09:05 02/07/19 36 15:28 Intake and Output 02/08/19 02/08/19 02/09/19 1515:00 23:00 07:00 IntakeIntake Total 1300 ml 1020 ml BalanceBalance 1300 ml 1020 ml Exam HEENT: Neck supple; no JVD; no LAD CVS: RRR, S1 and S2 CHEST: Reduced BS b/l; ++ chest wall crepitus ABD: Soft, NT, + BS EXT: No c/c; + tr edema Results/Medications Result Diagram: 02/07/19 0607 02/08/19 0645 Results 24 hrs Laboratory Tests Test 02/08/19 17:10 02/08/19 19:57 02/09/19 08:04 02/09/19 11:48 Bedside Glucose 169 158 153 135 Home Meds Active Scripts Albuterol Sulfate* (Proair HFA*) 8.5 Gm Hfa.aer.ad, 2 PUFF INH Q4, #1 INHALER Prov:LEO ADAMS MD 02/09/19 Tiotropium Everson* (Spiriva*) 18 Mcg Cap.w.dev, 1 CAP INHALATION DAILY, #30 CAP Prov:LEO ADAMS MD 02/09/19 Fluticasone/Vilanterol (Breo Ellipta 200-25 Mcg INH) 1 Each Blst.w.dev, 1 INH INH BID for 30 Days, #1 INHALER Prov:LEO ADAMS MD 02/09/19 Lactulose* (Lactulose*) 20 Gm/30 Ml Solution, 20 GM PO Q6 for 30 Days, #3600 ML Prov:LEO ADAMS MD 02/09/19 Reported Medications Ferrous Sulfate* (Ferrous Sulfate*) 325 Mg Tabec, 325 MG PO DAILY, TAB 02/07/19 Spironolactone* (Spironolactone*) 100 Mg Tablet, 100 MG PO DAILY, TAB 02/07/19 Famotidine (Famotidine) 20 Mg/2 Ml Syringe, 20 MG PO BID 02/07/19 Thiamine* (Thiamine*) 50 Mg Tablet, 100 MG PO DAILY, TAB 02/07/19 Furosemide* (Furosemide*) 40 Mg Tablet, 40 MG PO DAILY, TAB 02/07/19 Nicotine* (Nicotine* Patch) 7 mg/day Patch, 1 PATCH TD DAILY MDD 21mg/ day, PATCH 02/07/19 Cyanocobalamin (Cyanocobalamin) 25 Gm Powder, 1000 MCG PO DAILY 02/07/19 Folic Acid* (Folic Acid*) 1 Mg Tablet, 1 MG PO DAILY, TAB 02/07/19 Pantoprazole* (Protonix*) 40 Mg Tablet.dr, 40 MG PO DAILY, TAB 02/07/19 Lactulose* (Lactulose*) 10 Gm/15 Ml Solution, 10 GM PO Q12, #30 ML 02/07/19 Rifaximin (Rifaximin) 500 Gm Powder, 550 MG PO DAILY 02/07/19 Spironolactone* (Spironolactone*) 100 Mg Tablet, 100 MG PO DAILY, TAB 02/07/19 Insulin Lispro (Humalog) 100 Unit/1 Ml Cartridge, 100 UNIT SQ AC MEALS AND BEDTIME for with sliding scale, EA 02/07/19 Medications Current Medications Lactulose (Enulose) 20 gm Q6 PO Last administered on 02/09/19at 05:26; Admin Dose 20 GM; Start 02/07/19 at 06:00 Diphenhydramine HCl (Benadryl) 25 mg HS PRN PO INSOMNIA Last administered on 02/08/19at 21:16; Admin Dose 25 MG; Start 02/07/19 at 01:00 Pantoprazole (Protonix Tab) 40 mg DAILY@06 PO Last administered on 02/09/19at 05:26; Admin Dose 40 MG; Start 02/07/19 at 06:00 Folic Acid (Folic Acid) 1 mg DAILY PO Last administered on 02/09/19at 08:41; Admin Dose 1 MG; Start 02/07/19 at 09:00 Spironolactone (Aldactone) 100 mg DAILY PO Last administered on 02/09/19 08:40; Admin Dose 100 MG; Start 02/07/19 at 09:00 Multivitamins Therapeutic (Theragran) 1 tab DAILY PO Last administered on 02/09/19 08:41; Admin Dose 1 TAB; Start 02/07/19 at 09:00 Furosemide (Lasix) 40 mg DAILY PO Last administered on 02/09/19 08:41; Admin Dose 40 MG; Start 02/07/19 at 09:00 Cyanocobalamin (Vitamin B12) 1,000 mcg DAILY PO Last administered on 02/09/19 08:40; Admin Dose 1,000 MCG; Start 02/07/19 at 09:00 Nicotine (Nicoderm 21 Mg/ 24hr) 1 patch DAILY TRANSDERM Last administered on 02/09/19 08:41; Admin Dose 1 PATCH; Start 02/07/19 at 09:00 Ferrous Sulfate (Ferrous Sulfate (Ec)) 325 mg DAILY PO Last administered on 02/09/19 08:40; Admin Dose 325 MG; Start 02/07/19 at 09:00 Thiamine HCl (Vitamin B1) 100 mg DAILY PO Last administered on 02/09/19 08:41; Admin Dose 100 MG; Start 02/07/19 at 09:00 Albuterol (Ventolin Hfa) 2 puff Q4H RESP THERAPY PRN INH SHORTNESS OF BREATH; Start 02/07/19 at 01:00 Tramadol HCl (Ultram) 50 mg Q6H PRN PO MODERATE PAIN LEVEL 4-6; Start 02/07/19 at 01:00 Ondansetron HCl (Zofran Tab) 4 mg Q6H PRN PO NAUSEA AND/OR VOMITING; Start 02/07/19 at 01:00 Fluticasone/ Vilanterol (Breo Ellipta 200-25 Mcg Inh) 1 inh DAILY INH Last administered on 02/09/19 08:39; Admin Dose 1 INH; Start 02/07/19 at 15:00 Albuterol/ Ipratropium (Duoneb) 3 ml Q8H RESP THERAPY HHN Last administered on 02/09/19 08:55; Admin Dose 3 ML; Start 02/07/19 at 16:00 Diagnostic Test (Pha) (Accu-Chek) 1 ea 02 XX ; Start 02/08/19 at 02:00 Insulin Aspart (Novolog Insulin Pen) NOVOLOG *MILD* ALGORITHM WITH MEALS BEDTIME SC Last administered on 02/09/19at 08:11; Admin Dose 1 UNIT; Start 02/07/19 at 21:00 Miscellaneous Information 1 ea NOTE XX ; Start 02/07/19 at 20:00 Glucose (Glutose) 15 gm Q15M PRN PO DECREASED GLUCOSE; Start 02/07/19 at 20:00 Glucose (Glutose) 22.5 gm Q15M PRN PO DECREASED GLUCOSE; Start 02/07/19 at 20:00 Dextrose (D50w Syringe) 25 ml Q15M PRN IV DECREASED GLUCOSE; Start 02/07/19 at 20:00 Dextrose (D50w Syringe) 50 ml Q15M PRN IV DECREASED GLUCOSE; Start 02/07/19 at 20:00 Glucagon (Glucagen) 1 mg Q15M PRN IM DECREASED GLUCOSE; Start 02/07/19 at 20:00 Glucose (Glutose) 15 gm Q15M PRN BUCCAL DECREASED GLUCOSE; Start 02/07/19 at 20:00 Enoxaparin Sodium (Lovenox) 40 mg DAILY SC Last administered on 02/09/19at 08:45; Admin Dose 40 MG; Start 02/09/19 at 09:00 Assessment/Plan Assessment/Plan (Daily) IMP: 1. Recurrent Secondary Spontaneous Pneumothorax--in a patient with paraseptal emphysema s/p repeat indwelling chest tubes likely due to persistent air leaks. Now s/p accidental dislodgement of most recent tube with evidence of a persisten t small sized, partially loculated right pneumothorax. RECS: 1. As noted earlier, patient has opted not to pursue further treatment of her recurrent SSP. 2. Arrange home health; home oxygen; and PT/OT. RAGHU NERI MD Feb 09, 2019 12:28
== END 2019-02-09 20:38 | disposition home or self-care (01) | DRG 920 ==
LOC: E/R 18:32 → TEL 21:05 → EDBEDREQ 21:10 → OBSVTOIN 02-08 13:52
PROVIDERS: ADMIT Internal Medicine; ATTEND Internal Medicine
DX: T85.628A Displacement of other specified internal prosthetic devices, implants and grafts, initial encounter (principal); J93.12 Secondary spontaneous pneumothorax; K76.6 Portal hypertension; J43.9 Emphysema, unspecified; K70.30 Alcoholic cirrhosis of liver without ascites; D64.9 Anemia, unspecified; F17.200 Nicotine dependence, unspecified, uncomplicated; Y84.8 Other medical procedures as the cause of abnormal reaction of the patient, or of later complication, without mention of misadventure at the time of the procedure; Y92.89 Other specified places as the place of occurrence of the external cause
CPT/HCPCS: 36415; 71045; 71046; 71250; 80048; 80053; 80061; 80076; 82140; 82550; 82553; 82962; 83036; 83690; 83735; 83880; 84100; 84484; 85025; 85610; 85730; 93005; 94640; 94664; 94770; 96374; 96375; G0378; J1170; J1650; J1815; J2405; J2543; J3370; J7030